=== PATIENT | female | born 1985 | race Caucasian/White ===

== ENCOUNTER 2017-10-08 19:37 | Emergency (ER) | payer OTHER ==
--- NOTE | 2017-10-08 21:46 | ED ---
Melva Lovell Emily, scribed for Hunter Leigh on 10/08/17 at 204 . Adult Trauma - HPI Summary HPI Summary: This patient is a 32 year old F presenting to [facility] accompanied by status post fall. Pt reports that she fell from a horse onto a sand floor on her R side. She reports that she hit her head. She denies LOC, and was wearing a helmet at the time. The patient rates the pain 4/10 in severity. Symptoms aggravated by nothing. Symptoms alleviated by nothing. Patient reports blurred vision and headache. Patient denies CP and abd pain. - History of Current Complaint Chief Complaint: EDTraumaMultiple Stated Complaint: FALL OFF HORSE Time Seen by Provider: 10/08/17 20:35 Hx Obtained From: Patient ?: No Mechanism of Injury: Fall Ambulatory at the Scene: Yes Loss of Consciousness: no loss of consciousness Restraints: Helmet Onset/Duration: Started Hours Ago, Traumatic, Still Present Onset of Pain: Immediate Onset Severity: Moderate Current Severity: Moderate Pain Intensity: 4 Pain Scale Used: 0-10 Numeric Location: Head Aggravating Factor(s): Nothing Alleviating Factor(s): Nothing Associated Signs & Symptoms: Positive: Other: - Positive blurred vision and headache. Negative CP and abd pain. - Allergy/Home Medications Allergies/Adverse Reactions: Allergies Allergy/AdvReac Type Severity Reaction Status Date / Time amoxicillin [From Augmentin] Allergy Hives Verified 10/08/17 19:44 clavulanic acid Allergy Hives Verified 10/08/17 19:44 [From Augmentin] Sulfa (Sulfonamide Allergy Hives Verified 10/08/17 19:44 Antibiotics) terbinafine [From Lamisil] Allergy Hives Verified 10/08/17 19:44 Home Medications: Home Medications Albuterol inh POWDER (NF) [Proair Respiclick] 108 mcg IN Q4HR PRN 10/08/17 [ History Confirmed 10/08/17] Spironolactone 0.5 tab PO BID 10/08/17 [History Confirmed 10/08/17] buPROPion HCl [Bupropion HCl Sr] 1 tab PO BID 10/08/17 [History Confirmed ] PMH/Surg Hx/FS Hx/Imm Hx Previously Healthy: Yes Opthamlomology History: Denies: Hx Legally Blind EENT History: Denies: Hx Deafness Infectious Disease History: No Infectious Disease History: Denies: Traveled Outside the [place] in Last 30 Days - Family History Known Family History: Positive: Cardiac Disease, Diabetes - Social History Occupation: Employed Full-time Lives: With Family Alcohol Use: Occasionally Hx Substance Use: No Substance Use Type: Reports: None Hx Tobacco Use: No Smoking Status (MU): Never Smoked Tobacco Review of Systems Positive: Blurred Vision Negative: Chest Pain Negative: Abdominal Pain Positive: Headache All Other Systems Reviewed And Are Negative: Yes Physical Exam - Summary Physical Exam Summary: Appearance: Well appearing, no pain distress Skin: warm, dry, reflects adequate perfusion Head/face: normal Eyes: EOMI, MYKEL ENT: normal Neck: supple, non-tender Respiratory: CTA, breath sounds present Cardiovascular: RRR, pulses symmetrical Abdomen: non-tender, soft Bowel: present Musculoskeletal: normal, strength/ROM intact Neuro: normal, sensory motor intact, A&Ox3 Triage Information Reviewed: Yes Vital Signs On Initial Exam: Initial Vitals Temp Pulse Resp BP Pulse Ox 97.1 F 77 16 117/76 100 10/08/17 19:38 10/08/17 19:38 10/08/17 19:38 10/08/17 19:38 10/08/17 19:38 Vital Signs Reviewed: Yes Diagnostics - Vital Signs Vital Signs Temp Pulse Resp BP Pulse Ox 10/08/17 19:38 97.1 F 77 16 117/76 100 - Laboratory Lab Statement: Any lab studies that have been ordered have been reviewed, and results considered in the medical decision making process. Adult Trauma Course/Dx - Course Course Of Treatment: This patient is a 32 year old F presenting to [facility] accompanied by friend status post fall. She reports that she hit her head. She denies LOC, and was wearing a helmet at the time. Patient will be signed out to Dr. Dale upon shift change pending brain CT and disposition. The patient is agreeable with this plan. - Diagnoses Provider Diagnoses: Head injury, Fall Discharge - Sign-Out/Discharge Documenting (check all that apply): Sign-Out Patient Signing out patient TO: Gilmar Dale - Upon shift change pending CT and dispo - Discharge Plan Condition: Stable Discharge Disposition Comment: Sign-out to Dr. Dale Referrals: No Primary Care Phys,NOPCP [Primary Care Provider] - The documentation as recorded by the Melva knox Emily accurately reflects the service I personally performed and the decisions made by me, Hunter Leigh.
[2017-10-09 00:54] VITALS: BP 110/62
--- NOTE | 2017-10-09 06:12 | RAD ---
INDICATION: "Haziness" after falling off of a horse COMPARISON: None. TECHNIQUE: Contiguous axial sections of the brain were obtained from the skull base to the vertex without contrast. FINDINGS: The ventricles, cisterns and sulci are within normal limits. The travis-white matter differentiation is adequately maintained and there is no sulcal effacement. No significant focal abnormality or mass effect is present. There is no evidence for intracranial hemorrhage. No significant focal osseous abnormality is present. The visualized portion of the paranasal sinuses appear clear. The mastoid air cells are well aerated bilaterally. IMPRESSION: Normal CT of the brain.
--- NOTE | 2017-10-09 06:26 | ED ---
Augustus Lovell Tiffany, scribed for Gilmar Dale MD on 10/08/17 at 2311 . Progress - Progress Note Progress Note: Patient signed out from Dr. Leigh, awaiting CT Brain, pending dispo. CT Brain, per radiologist, no acute intracranial hemorrhage mass effect or midline shift. ED physician has reviewed this report. Course/Dx - Course Course Of Treatment: Patient has neurologically normal and her symptoms have improved. Head CT negative. - Diagnoses Provider Diagnoses: Concussion, Closed head injury Discharge - Sign-Out/Discharge Documenting (check all that apply): Discharge/Admit/Transfer - discharge - Discharge Plan Condition: Improved Disposition: HOME Prescriptions: Ondansetron TAB* [Zofran 4 MG Tab*] 4 mg PO Q6H PRN #12 tab PRN Reason: Nausea Patient Education Materials: Concussion (ED) Forms: *Work Release Referrals: [facility] [Outside] [facility] [Outside] Additional Instructions: Brain rest to include quiet, darkened rooms. Avoid fine print reading, electronic screens. Return with increased headache, repetitive vomiting, worse or other concerns. Tylenol, ibuprofen as needed. - Billing Disposition and Condition Condition: IMPROVED Disposition: Home The documentation as recorded by the Augustus knox Tiffany accurately reflects the service I personally performed and the decisions made by , Gilmar Dale MD.
== END 2017-10-08 23:53 | disposition home or self-care (01) ==
LOC: ED 19:37
DX: S06.0X0A Concussion without loss of consciousness, initial encounter (principal); V80.010A Animal-rider injured by fall from or being thrown from horse in noncollision accident, initial encounter; Y92.9 Unspecified place or not applicable
CPT/HCPCS: 70450; 99283

== ENCOUNTER 2017-11-01 11:33 | Emergency (ER) | payer OTHER ==
[2017-11-01 11:58] VITALS: BP 121/71
--- NOTE | 2017-11-01 12:27 | UC ---
General HPI - HPI Summary HPI Summary: This is lisette Anjelicagarima Long documenting for attending Dr. Jarred Pickering MD. The patient is a 32 y/o F presenting to [facility] c/o medication refill for Brupropion starting yesterday. She has just moved to the area and doesn't have a PCP yet to refill her prescription. She had her other medications transferred to a local pharmacy, but her refill for Brupropion ran out yesterday. She has since been having headaches, but she feels okay otherwise. Her pain is rated 2/10 in severity. She denies SI and HI. She has previously taken Effexor, but she would still have depressive episodes. She has not had a relapse since starting 150mg BID Brupropion 8 years ago. - History of Current Complaint Chief Complaint: UCMedRefill Stated Complaint: MED REFILL Time Seen by Provider: 11/01/17 12:18 Hx Obtained From: Patient Onset/Duration: Sudden Onset, Lasting Days, Still Present Timing: Constant Pain Intensity: 2 Pain Location at: headache Aggravating: medication withdrawal Associated Signs & Symptoms: Positive: Headache, Other - NEGATIVE: SI, HI. Negative: Fever - Allergy/Home Medications Allergies/Adverse Reactions: Allergies Allergy/AdvReac Type Severity Reaction Status Date / Time amoxicillin [From Augmentin] Allergy Hives Verified 10/08/17 19:44 clavulanic acid Allergy Hives Verified 10/08/17 19:44 [From Augmentin] Sulfa (Sulfonamide Allergy Hives Verified 10/08/17 19:44 Antibiotics) terbinafine [From Lamisil] Allergy Hives Verified 10/08/17 19:44 PMH/Surg Hx/FS Hx/Imm Hx Other Endocrine History: NEGATIVE: diabates Psychological History: Depression - Surgical History Surgical History: Yes Surgery Procedure, Year, and Place: uterine ablasion - Family History Known Family History: Positive: Cardiac Disease, Diabetes - Social History Alcohol Use: Occasionally Substance Use Type: None Smoking Status (MU): Never Smoked Tobacco Review of Systems Constitutional: Negative - fever Neurological: Headache Psychological: Negative - SI, HI All Other Systems Reviewed And Are Negative: Yes Physical Exam - Summary Physical Exam Summary: Appearance: Well-appearing, Well-nourished Skin: Warm Eyes: Normal ENT: Normal Neck: Supple, nontender Respiratory: Clear to auscultation Cardiovascular: Regular rate, regular rhythm. Normal S1, S2. Abdomen: Soft, nontender Musculoskeletal: Normal, Strength/ROM Intact Neurological: Normal, A&Ox3 Psychiatric: Normal General: No acute distress Triage Information Reviewed: Yes Vital Signs: Initial Vital Signs Temp 97.8 F 11/01/17 11:56 Pulse 89 11/01/17 11:56 Resp 18 11/01/17 11:56 BP 121/71 11/01/17 11:56 Pulse Ox 100 11/01/17 11:56 Vital Signs Reviewed: Yes Course/Dx - Course Course Of Treatment: Pt has been on wellbutrin for 8-9 yrs, recently moved back to [facility] from [place] and has components of SAD with MDD with minor relapses since pt was in [employer] school. Last dose yesterday. Refilled for one month until she is able to establish PCP/psych relationship. No complaints today. - Differential Dx - Multi-Symptom Provider Diagnoses: medication refill, depression Discharge - Sign-Out/Discharge Documenting (check all that apply): Patient Departure - Pt will be discharged home. - Discharge Plan Condition: Stable Disposition: HOME Prescriptions: buPROPion SR TAB* [Wellbutrin SR TAB*] 150 mg PO BID 30 Days #60 tab.sr Patient Education Materials: Bupropion (By mouth) Referrals: [facility] [Outside] Additional Instructions: follow up with PCP and psychiatry per appt - Billing Disposition and Condition Condition: STABLE Disposition: Home
== END 2017-11-01 12:38 | disposition home or self-care (01) ==
LOC: UCEAST 11:33
DX: F32.9 Major depressive disorder, single episode, unspecified (principal); Z76.0 Encounter for issue of repeat prescription; Z88.0 Allergy status to penicillin; Z88.2 Allergy status to sulfonamides; Z88.8 Allergy status to other drugs, medicaments and biological substances
CPT/HCPCS: 99212; G0463